=== PATIENT | female | born 1970 | race Two or more races ===

== ENCOUNTER 2016-10-07 17:54 | Emergency (ER) | payer MEDICAID ==
[~2016-10-07] VITALS: Ht 160 cm; Wt 82.0 kg
[2016-10-07] MEDS ORDERED: IBUPROFEN 800MG TABLET PO ONE (21:30)
[2016-10-08 00:25] VITALS: BP 136/67
== END 2016-10-08 00:41 | disposition home or self-care (01) ==
LOC: ER 21:08
DX: S40.012A Contusion of left shoulder, initial encounter (principal); S10.93XA Contusion of unspecified part of neck, initial encounter; V49.88XA Car occupant (driver) (passenger) injured in other specified transport accidents, initial encounter; Y93.89 Activity, other specified; Y92.410 Unspecified street and highway as the place of occurrence of the external cause; Y99.8 Other external cause status
CPT/HCPCS: 73030; 81025; 99284

== ENCOUNTER 2016-11-04 19:45 | Emergency (ER) | payer MEDICAID ==
[~2016-11-04] VITALS: Ht 160 cm; Wt 90.1 kg
[2016-11-04 20:24] VITALS: BP 150/88
== END 2016-11-04 23:00 | disposition left against medical advice (07) ==
LOC: ER 19:45
DX: M54.2 Cervicalgia (principal); Z53.21 Procedure and treatment not carried out due to patient leaving prior to being seen by health care provider